=== PATIENT | male | born 1965 | race American Indian/Alaskan Native ===

== ENCOUNTER 2017-04-03 14:58 | Emergency (ER) | payer SELFPAY ==
--- NOTE | 2017-04-03 15:50 | Emergency Department Report ---
Chief Complaint: Chest Pain Stated Complaint: CHEST/BACK PAIN/TINGLING FINGERS Time Seen by Provider: 04/03/17 15:46 - HPI History of Present Illness: PT c/o intermittent cp x 1 year. 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 PT states he is having back pain. PT states the most rescent episode of chest pain started yesterday at 0500 and lasted to 1000. PT states he is having back pain currently - ROS Review of Systems: + chest pain + back pain, pt states he fell on his back 1- 2 years ago and he has had back pain since fall. PT states he was seen after fall and had imagining - Exam Vital Signs: Vital Signs 04/03/17 15:13 Temperature 98.4 F Pulse Rate 63 Respiratory 20 Rate Blood Pressure 129/80 O2 Sat by Pulse 100 Oximetry Physical Exam: PT looks well, non toxic steady gait + low back tenderness MSE screening note: Focused history and physical exam performed. Due to findings the following was ordered: ekg, labs, xr ED Disposition for MSE Condition: Stable
[2017-04-03 16:44] LABS: Basophils % (Auto) 0.6 % (0.0-1.8); Eosinophils % (Auto) 1.4 % (0.0-4.3); Hematocrit 44.1 % (35.5-45.6); Hemoglobin 14.3 gm/dl (11.8-15.2); Mean Corpuscular HGB Conc 32 % (32-34); Mean Corpuscular Hemoglobin 28 pg (28-32); Mean Corpuscular Volume 85 fl (84-94); Platelet Count 234 K/mm3 (140-440); Red Blood Count 5.17 M/mm3 (3.65-5.03); Red Cell Distribution Width 15.1 % (13.2-15.2); White Blood Count 6.7 K/mm3 (4.5-11.0)
[2017-04-03 17:04] LABS: Alanine Aminotransferase 16 units/L (7-56); Albumin 4.1 g/dL (3.9-5); Albumin/Globulin Ratio 1.1 %; Alkaline Phosphatase 55 units/L (35-129); Anion Gap 17 mmol/L; BUN/Creatinine Ratio 12.22; Blood Urea Nitrogen 11 mg/dL (9-20); Calcium 9.4 mg/dL (8.4-10.2); Carbon Dioxide 27 mmol/L (22-30); Chloride 100.8 mmol/L (98-107); Glucose 112 mg/dL (75-100); Potassium 4.4 mmol/L (3.6-5.0); Sodium 140 mmol/L (137-145); Total Protein 7.7 g/dL (6.3-8.2)
--- NOTE | 2017-04-03 20:23 | Emergency Department Report ---
ED Chest Pain HPI - General Chief Complaint: Chest Pain Stated Complaint: CHEST/BACK PAIN/TINGLING FINGERS Time Seen by Provider: 04/03/17 15:46 Source: patient Mode of arrival: Ambulatory Limitations: No Limitations - History of Present Illness MD Complaint: chest pain -: year(s) Onset: during exertion Pain Location: left chest Pain Radiation: back Severity scale (0 -10): 5 Improves With: movement, other (stretching) Worsens With: exertion re: denies: nausea, diaphoresis Other Symptoms: denies: cough, fever Treatments Prior to Arrival: aspirin - Related Data Previous Rx's Medication Instructions Recorded Last Taken Type amLODIPine [Norvasc] 10 mg PO DAILY #30 tab 09/26/15 Unknown Rx Metaxalone [Skelaxin] 800 mg PO TID #30 tablet 04/03/17 Unknown Rx Nitroglycerin [Nitrostat] 0.4 mg SL Q5M PRN #30 tab 04/03/17 Unknown Rx Allergies Allergy/AdvReac Type Severity Reaction Status Date / Time No Known Allergies Allergy Unverified 09/25/15 18:37 Heart Score - HEART Score History: Moderately suspicious EKG: Normal Age: 45-65 Risk factors: 1-2 risk factors Troponin: < normal limit HEART Score: 3 - Critical Actions Critical Actions: 0-3 pts:0.9-1.7%risk of adverse cardiac event.Candidate for discharge ED Review of Systems ROS: Stated complaint: CHEST/BACK PAIN/TINGLING FINGERS Other details as noted in HPI Comment: All other systems reviewed and negative Constitutional: denies: chills, diaphoresis, fever Respiratory: denies: cough, shortness of breath, SOB with exertion Cardiovascular: chest pain. denies: palpitations Gastrointestinal: denies: abdominal pain Neurological: denies: headache ED Past Medical Hx - Past Medical History Previous Medical History?: Yes Hx Hypertension: Yes Hx Diabetes: No Hx Asthma: No Hx COPD: No - Surgical History Additional Surgical History: RIGHT 4TH FINGER - Social History Smoking Status: Current Some Day Smoker Substance Use Type: Alcohol - Medications Home Medications: Home Medications Medication Instructions Recorded Confirmed Last Taken Type amLODIPine [Norvasc] 10 mg PO DAILY #30 tab 09/26/15 Unknown Rx Metaxalone [Skelaxin] 800 mg PO TID #30 tablet 04/03/17 Unknown Rx Nitroglycerin [Nitrostat] 0.4 mg SL Q5M PRN #30 tab 04/03/17 Unknown Rx ED Physical Exam - General Limitations: No Limitations General appearance: alert, in no apparent distress - Neck Neck exam: Absent: normal inspection, tenderness, meningismus - Respiratory Respiratory exam: Present: normal lung sounds bilaterally, chest wall tenderness (muscles spasm). Absent: rales, rhonchi, stridor, accessory muscle use, decreased breath sounds - Cardiovascular Cardiovascular Exam: Present: regular rate, normal rhythm, normal heart sounds - GI/Abdominal GI/Abdominal exam: Present: soft. Absent: tenderness, guarding, rebound, mass, bruit - Back Exam Back exam: Present: normal inspection, muscle spasm - Neurological Exam Neurological exam: Present: alert, oriented X3, CN II-XII intact - Skin Skin exam: Present: warm ED Course Vital Signs 04/03/17 15:13 Temperature 98.4 F Pulse Rate 63 Respiratory 20 Rate Blood Pressure 129/80 O2 Sat by Pulse 100 Oximetry - Reevaluation(s) Reevaluation #1: 04/03/17 20:24 Patient stated that he does not have any chest pain at this moment I talked him into being admitted to the hospital to rule out OK and he stated he had the same problem last year he had a stress test done was told was negative patient does not want to be admitted to the hospital advised him to follow-up with his primary care physician tomorrow WALTER score - Walter Score Age > 65: (0) No Aspirin use within the Past 7 Days: (1) Yes 3 or more CAD Risk Factors: (0) No 2 or more Angina events in past 24 hrs: (1) Yes Known CAD with more than 50% Stenosis: (0) No Elevated Cardiac Markers: (0) No ST Deviation Greater than 0.5mm: (0) No WALTER Score: 2 ED Medical Decision Making - Lab Data Result diagrams: 04/03/17 16:30 04/03/17 16:30 Critical care attestation.: If time is entered above; I have spent that time in minutes in the direct care of this critically ill patient, excluding procedure time. ED Disposition Clinical Impression: Chest pain Disposition: DC-01 TO HOME OR SELFCARE Is pt being admited?: No Does the pt Need Aspirin: No Condition: Stable Instructions: Chest Pain (ED) Referrals: PRIMARY CARE, [Primary Care Provider] - 3-5 Days
[2017-04-03] MEDS ORDERED: TORADOL IM ONE (20:47)
[2017-04-03 21:34] VITALS: BP 131/78
--- NOTE | 2017-04-04 07:22 | XRay Report ---
ROUTINE CHEST, TWO VIEWS: HISTORY: chest pain. The trachea, heart, mediastinal contour, lung gerber and bony thorax are unremarkable. IMPRESSION: Unremarkable chest x-ray. No significant change since 09/25/15.
== END 2017-04-03 21:32 | disposition home or self-care (01) ==
LOC: ED 14:58
DX: R07.9 Chest pain, unspecified (principal); I10 Essential (primary) hypertension; Z72.0 Tobacco use
CPT/HCPCS: 36415; 71020; 80053; 84484; 85025; 93005; 93010; 96372; 99284; J1885